=== PATIENT | male | born 1970 | race Two or more races ===

== ENCOUNTER 2016-12-05 21:54 | Emergency (ER) | payer OTHER ==
[~2016-12-05] VITALS: Ht 182.9 cm; Wt 70.0 kg
[2016-12-05] MEDS ORDERED: LIDOCAINE HCL BUFFERED 1% 20 ML VIAL ONE (23:42)
[2016-12-05] MEDS ORDERED: PERTUSS(ACELL),DIPH,TET VAC/PF 0.5 ML VIAL IM ONE (23:45)
[2016-12-05] MEDS ORDERED: LIDOCAINE HCL BUFFERED 1% 20 ML VIAL INJ ONE (23:45)
[2016-12-06] MEDS ORDERED: IBUPROFEN 600 MG TABLET PO ONE (00:15)
[2016-12-06 00:23] VITALS: BP 137/100
== END 2016-12-06 00:24 | disposition home or self-care (01) ==
LOC: EMS 21:57
DX: S01.511A Laceration without foreign body of lip, initial encounter (principal); Y04.0XXA Assault by unarmed brawl or fight, initial encounter; Y93.89 Activity, other specified; Y92.89 Other specified places as the place of occurrence of the external cause; Y99.8 Other external cause status
CPT/HCPCS: 12011; 90471; 90715; 99283; J3490